=== PATIENT | female | born 1945 | race Caucasian/White ===

== ENCOUNTER 2018-05-30 02:31 | Outpatient (CLI) | payer MEDICARE ==
[~2018-05-30 02:31] MED LIST: CYAN-19 PO; ENAL20TA75 PO; FERGLU300T PO; HYDR25TA4 PO; METF500T PO; MULT-1085 PO; OMEP20TA5 PO; OMEP40CA37 PO; OXYC-658 PO; POTA10TA36 PO; TRAM50TA2 PO
== END 2018-05-30 23:59 | disposition home or self-care (01) ==
LOC: DIABETIC 02:31
PROVIDERS: ATTEND Family Medicine
DX: E11.65 Type 2 diabetes mellitus with hyperglycemia (principal); I10 Essential (primary) hypertension; F17.210 Nicotine dependence, cigarettes, uncomplicated; Z96.651 Presence of right artificial knee joint
CPT/HCPCS: G0108

== ENCOUNTER 2018-06-26 00:38 | Outpatient (CLI) | payer MEDICARE | END 2018-06-26 23:59 | disposition home or self-care (01) | LOC: DIABETIC 00:38 | PROVIDERS: ATTEND Family Medicine | DX: E11.65 Type 2 diabetes mellitus with hyperglycemia (principal); Z79.84 Long term (current) use of oral hypoglycemic drugs; Z79.899 Other long term (current) drug therapy | CPT/HCPCS: G0108 ==

== ENCOUNTER 2020-12-14 09:12 | Day surgery (SDC) | payer MEDICARE ==
[~2020-12-14] VITALS: Ht 157.5 cm; Wt 62.1 kg
[~2020-12-14 09:12] MED LIST changes: -CYAN-19 PO; +CYAN-51 PO; -FERGLU300T PO; +FERR324T23 PO; +OMEP40CA21 PO; -OMEP40CA37 PO
[2020-12-14 09:38] VITALS: BP 127/61
[2020-12-14] MEDS ORDERED: albumin 25% 100mL bottle x 1 IV PRN (09:45)
[2020-12-14] MEDS ORDERED: HYDR-3965 PO (09:48)
[2020-12-14 10:15] VITALS: BP 143/70
[2020-12-14 10:30] VITALS: BP 137/63
[2020-12-14 10:45] VITALS: BP 144/65
[2020-12-14 11:00] VITALS: BP 153/70
[2020-12-14 11:15] VITALS: BP 148/72
== END 2020-12-14 11:15 | disposition home or self-care (01) ==
LOC: SSTAY O 09:12
PROVIDERS: ATTEND Radiology Vascular & Interventional Radiology
DX: R18.8 Other ascites (principal); R14.0 Abdominal distension (gaseous); K21.9 Gastro-esophageal reflux disease without esophagitis; E11.9 Type 2 diabetes mellitus without complications; Z90.710 Acquired absence of both cervix and uterus; Z85.3 Personal history of malignant neoplasm of breast; Z90.12 Acquired absence of left breast and nipple; Z98.890 Other specified postprocedural states; Z79.899 Other long term (current) drug therapy; Z79.891 Long term (current) use of opiate analgesic; Z79.84 Long term (current) use of oral hypoglycemic drugs; Z96.651 Presence of right artificial knee joint; Z90.49 Acquired absence of other specified parts of digestive tract; Z83.42 Family history of familial hypercholesterolemia; Z80.8 Family history of malignant neoplasm of other organs or systems
CPT/HCPCS: 49083

== ENCOUNTER 2021-03-12 07:34 | Day surgery (SDC) | payer MEDICARE ==
[~2021-03-12] VITALS: Ht 157.5 cm; Wt 44.5 kg
[~2021-03-12 07:34] MED LIST changes: -CYAN-51 PO; -FERR324T23 PO; +HYDR-3965 PO; -HYDR25TA4 PO; -OMEP40CA21 PO; -OXYC-658 PO; -POTA10TA36 PO
[2021-03-12] MEDS ORDERED: LIDOcaine 1% 30ml preserv. free vial IJ STA (07:36)
[2021-03-12] MEDS ORDERED: normal saline 1000ml 1,000 ML IV PRN (08:10)
[2021-03-12] MEDS ORDERED: albumin 25% 100mL bottle x 1 IV PRN (08:10)
[2021-03-12 08:20] VITALS: BP 120/59
[2021-03-12] MEDS ORDERED: NA P133E4 RC (08:43)
[2021-03-12] MEDS ORDERED: FURO-150 PO (08:43)
[2021-03-12] MEDS ORDERED: GLIM2TAB6 PO (08:43)
[2021-03-12] MEDS ORDERED: FERR-39 PO (08:43)
[2021-03-12] MEDS ORDERED: LOPE-144 PO (08:43)
[2021-03-12] MEDS ORDERED: FOLI0.4T14 PO (08:43)
[2021-03-12] MEDS ORDERED: ACET325T54 PO (08:43)
[2021-03-12] MEDS ORDERED: GABA300C PO (08:43)
[2021-03-12] MEDS ORDERED: BISA10SU64 RC (08:43)
[2021-03-12] MEDS ORDERED: ACET325T53 PO (08:43)
[2021-03-12] MEDS ORDERED: CYAN-51 PO (09:23)
[2021-03-12] MEDS ORDERED: PANT-47 PO (09:23)
[2021-03-12] MEDS ORDERED: MULT-1085 PO (09:23)
[2021-03-12] MEDS ORDERED: SPIR25TA5 PO (09:23)
[2021-03-12] MEDS ORDERED: MAGN400T29 PO (09:23)
[2021-03-12] MEDS ORDERED: MAGN400O6 PO (09:23)
[2021-03-12] MEDS ORDERED: TRAM50TA2 PO (09:23)
== END 2021-03-12 11:00 | disposition home or self-care (01) ==
LOC: SSTAY O 07:34
PROVIDERS: ATTEND Radiology Vascular & Interventional Radiology
DX: K70.31 Alcoholic cirrhosis of liver with ascites (principal); Z53.8 Procedure and treatment not carried out for other reasons; K21.9 Gastro-esophageal reflux disease without esophagitis; E11.22 Type 2 diabetes mellitus with diabetic chronic kidney disease; I12.9 Hypertensive chronic kidney disease with stage 1 through stage 4 chronic kidney disease, or unspecified chronic kidney disease; N18.30 Chronic kidney disease, stage 3 unspecified; Z87.11 Personal history of peptic ulcer disease; Z90.49 Acquired absence of other specified parts of digestive tract; Z90.710 Acquired absence of both cervix and uterus; Z98.890 Other specified postprocedural states; Z79.84 Long term (current) use of oral hypoglycemic drugs; Z79.899 Other long term (current) drug therapy; Z83.42 Family history of familial hypercholesterolemia; Z80.8 Family history of malignant neoplasm of other organs or systems
CPT/HCPCS: 76705